=== PATIENT | female | born 1945 | race Two or more races ===

== ENCOUNTER 2024-05-12 11:02 | Emergency (ER) | payer OTHER, SELFPAY ==
[2024-05-12 11:06] VITALS: BP 147/72; PULSE 84; TEMP 36.7; O2SAT 98; BMI 29.5
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
[2024-05-12] MEDS: HYDROCODONE/ACET 5-325 MG TABLET 1 TAB PO (13:45)
[2024-05-12 14:37] VITALS: PULSE 84; O2SAT 98
== END 2024-05-12 14:55 | disposition home or self-care (01) ==
PROVIDERS: Emergency Provider Student in an Organized Health Care Education/Training Program; PCP Nurse Practitioner
DX: M79.671 Pain in right foot (principal); M25.512 Pain in left shoulder
CPT/HCPCS: 73030; 73630; 93971; 99284